=== PATIENT | female | born 1960 | race Caucasian/White ===

== ENCOUNTER 2020-11-30 06:49 | Emergency (ER) | payer OTHER, SELFPAY ==
--- NOTE | 2020-11-30 06:57 | DI.RAD.S_ITS ---
PROCEDURE: XR KNEE RT 3V INDICATIONS: trauma TECHNIQUE: 3 views of the knee were acquired. COMPARISON: None. FINDINGS: Bones: Transverse fracture through the mid patella. No significant distraction. No dislocations. No suspicious bony lesions. Soft tissues: Large joint effusion. Prepatellar soft tissue swelling. No suspicious soft tissue calcifications. IMPRESSION: Transverse fracture through the mid patella. This report is concordant with the overnight preliminary interpretation. Dictated by: Jose Manuel Wooten M.D. on 11/30/2020 at 8:07 Approved by: Jose Manuel Wooten M.D. on 11/30/2020 at 8:10
[2020-11-30 07:08] VITALS: BP 138/80; PULSE 74; RESP 17; TEMP 36.8; O2SAT 99; BMI 22.6
--- NOTE | 2020-11-30 07:28 | ED.LOWEXIN ---
HPI - Extremity Injury (Lower) General Chief Complaint: Extremity Injury, Lower Stated Complaint: Right knee injury -fell at home Time Seen by Provider: 11/30/20 06:55 Source: patient Mode of arrival: Wheelchair Limitations: no limitations History of Present Illness HPI Narrative: Patient is a 60-year-old female who while she was getting ready this morning tripped and fell landing on her right knee in a bent position. Had immediate discomfort and swelling. She was able to walk however was very uncomfortable for her. She placed ice over the area. She has had no prior injuries. Related Data Allergies Allergy/AdvReac Type Severity Reaction Status Date / Time No Known Drug Allergies Allergy Verified 11/30/20 07:08 Review of Systems Constitutional Constitutional: Denies fever(s) and Denies weakness Cardiovascular Cardiovascular: Denies chest pain and Denies dyspnea Respiratory Respiratory: Denies dyspnea Gastrointestinal Gastrointestinal: Denies abdominal pain Genitourinary Genitourinary: Denies dysuria Genitourinary: Denies dysuria Musculoskeletal Comments: Right knee pain and swelling Integumentary/Breasts Skin/Breast: Denies rash Neurologic Neurologic: Denies weakness Hematologic/Lymphatic On Anticoagulants: No Allergic/Immunologic Allergic/Immunologic: Denies urticaria Patient History Medical History Healthy adult Social History Smoking Status: Never smoker Smoking Status: Never smoker Substance Use Type: does not use Exam Initial Vital Signs Initial Vital Signs: Vital Signs Temperature 98.3 F 11/30/20 07:08 Pulse Rate 74 11/30/20 07:08 Respiratory Rate 17 11/30/20 07:08 Blood Pressure 138/80 11/30/20 07:08 Pulse Oximetry 99 11/30/20 07:08 Const General: cooperative and comfortable Limitations: mental status not altered HENMT Head: normal to inspection and normocephalic Resp Effort & Inspection: normal respiratory effort Skin Lesions: no lesions Rashes: no rashes Extrem Other: Patient has no right hip the right thigh tenderness. Her right calf is unremarkable. Right ankle and right foot are unremarkable. There are no other orthopedic injuries except for the right knee. Patient's right knee is swollen. She is able to do a straight leg raise. She is tender over the patella. No tenderness along the mediolateral joint lines. No tenderness along the hamstrings. Does have tenderness along the patella tendon. The quadriceps tendon has no tenderness in feels intact. Psych Appearance: grossly normal and well kempt Procedures Orthopedic Splinting/Casting Injury #1: Side: right Lower Extremity Injury Location: knee Lower Extremity Immobilizer: knee immobilizer Other Orthopedic Equipment: crutches Post splinting neuro exam: intact Post splinting vascular exam: intact Placed by: Nursing Course Orders Ordered: ED Orders 11/30/20 06:57 XR knee RT 3V Stat Vital Signs Vital signs: Vital Signs - 8 hr 11/30/20 07:08 Temperature 98.3 F Pulse Rate 74 Respiratory Rate 17 Blood Pressure 138/80 Pulse Oximetry 99 MDM - Extremity Injury (Lower) Imaging Data Extremity x-ray #1: Attestation: I personally reviewed and interpreted this imaging study as follows: My Impression: Patella fracture MDM Narrative Medical decision making narrative: Patient is neurovascularly intact. Does appear that this was a mechanical fall. Only injuries reported from the patient and found in the exam is the right knee. She does have a right knee effusion. There is a patellar fracture noted on the x-rays. She is able to do a straight leg raise. She has no tenderness over the quadriceps tendon and it does feel to be intact. Patient does have at least a partially intact patella tendon, however her potentially may be a partial tear but this exam could be skewed by the swelling that she is having. Will place her in a knee immobilizer. She was given crutches. She was given information for orthopedic follow-up. She denied the need for pain medicine stronger than Tylenol/ibuprofen. She is given return precautions. She expressed understanding and agreement. Discharge Plan Departure Patient Disposition: Home Clinical Impression: Fractured patella Qualifiers: Encounter type: initial encounter Fracture type: closed Fracture morphology: unspecified fracture morphology Fracture alignment: nondisplaced Laterality: right Qualified Code(s): S82.001A - Unspecified fracture of right patella, initial encounter for closed fracture Instructions: How to Use Crutches, DI for Patella Fracture, How to Use a Knee Immobilizer Activity Restrictions/Additional Instructions: The crutches are for your comfort. The knee immobilizer should be worn when you are up and standing however can be removed to take a shower or when you are sitting on the couch to ice your knee like we discussed. Recommend you contact the [facility] at [phone]. Call them today when their office opens to schedule an appointment for next week. Return to the emergency department for any new or worsening symptoms Referrals: Carlos Bradley MD [Physician] -
[2020-11-30 08:35] VITALS: BP 155/72; PULSE 64; RESP 16; O2SAT 98
== END 2020-11-30 08:35 | disposition home or self-care (01) ==
PROVIDERS: Emergency Provider Emergency Medicine
DX: S82.001A Unspecified fracture of right patella, initial encounter for closed fracture (principal); W19.XXXA Unspecified fall, initial encounter
CPT/HCPCS: 73562; 99283

== ENCOUNTER 2021-11-26 12:37 | Emergency (ER) | payer OTHER, SELFPAY ==
[2021-11-26] VITALS (14 sets, daily range): BP systolic 158–201; BP diastolic 83–97; PULSE 52–80; RESP 16–31; TEMP 36.6; O2SAT 98–99; BMI 23.5
--- NOTE | 2021-11-26 13:02 | DI.RAD.S_ITS ---
PROCEDURE: XR CHEST 1V INDICATIONS: chest pain TECHNIQUE: One view of the chest was acquired. COMPARISON: None. FINDINGS: Surgical changes and devices: None. Lungs and pleura: Lungs are clear. No pleural effusions or pneumothorax. Mediastinum: Mediastinal contours appear normal. Heart size is normal. Bones and chest wall: No suspicious bony lesions. Overlying soft tissues appear unremarkable. IMPRESSION: No acute cardiopulmonary findings Approved by: Shant Jara M.D. on 11/26/2021 at 12:34
[2021-11-26 13:34] LABS: Add Manual Diff / Slide Review NO; Basophils Absolute Auto 0 /uL (0-100); Basophils Percent Auto 0.3 % (0-2); Eosinophils Absolute Auto 0 /uL (0-450); Eosinophils Percent Auto 0.2 % (2-4); Hematocrit 36.2 % (36-46); Hemoglobin 12.6 g/dL (12.0-16.0); Lymphocytes Absolute Auto 1400 /uL (1100-4500); Lymphocytes Percent Auto 25.2 % (25-40); Mean Corpuscular HGB Conc 34.8 % (30-36); Monocytes Absolute Auto 300 /uL (0-900); Monocytes Percent Auto 5.7 % (3-14); Neutrophils Absolute Auto 3800 /uL (1500-7000); Neutrophils Percent Auto 68.6 % (50-75); Platelet Count 225 X10^3/uL (150-400); Red Blood Cell Count 4.06 X10^6/uL (4.0-5.2); Red Cell Distribution Width 12.9 % (11.6-14.8); White Blood Cell Count 5.5 X10^3/uL (4.5-11.0)
[2021-11-26 14:02] LABS: Alanine Aminotransferase 50 IU/L (<35); Albumin 4.6 g/dL (3.5-5.0); Albumin Globulin Ratio 1.6 (1.0-2.8); Alkaline Phosphatase 60 U/L (38-126); Aspartate Aminotransferase 48 IU/L (14-36); BUN Creatinine Ratio 13.2 (6-22); Bilirubin Total 0.7 mg/dL (0.2-1.3); Blood Urea Nitrogen 10 mg/dL (7-17); Calcium 9.6 mg/dL (8.4-10.2); Carbon Dioxide 29 mmol/L (22-32); Chloride 103 mmol/L (98-107); Creatine Kinase 220 U/L (30-135); Estimated Glomerular Filt Rate > 60.0 mL/min (>60); Globulin 2.9 g/dL (1.7-4.1); Glucose 111 mg/dL (80-110); HEMOLYSIS < 15 (0-50); Lipase 96 U/L (23-300); Magnesium 2.1 mg/dL (1.6-2.3); Sodium 141 mmol/L (137-145); Total Protein 7.5 g/dL (6.3-8.2)
[2021-11-26 14:12] LABS: Troponin I < 0.012 ng/mL (0.01-0.034)
[2021-11-26 14:18] LABS: CKMB % Relative Index 0.7 % (1.5-5.0); Creatine Kinase MB 1.59 ng/mL (<2.37)
--- NOTE | 2021-11-26 16:55 | ED_ITS ---
HPI - General Adult General Chief complaint: Hypertension Stated complaint: hypertensive Time Seen by Provider: 11/26/21 16:28 Source: patient Mode of arrival: Ambulatory History of Present Illness HPI narrative: Patient is a 61-year-old female who does have a history of hypertension presenting today with mild headache and elevated blood pressure, and mild chest pressure. She has noted that it has been elevated for about 1 week but was significantly elevated days. She denies any blurry vision numbness tingling or weakness. No palpitations or shortness of breath. She has had a lot of stress in her life vomiting people were ill her twin brother 2 years ago with thrombocytopenia an intracranial hemorrhage though she is worried about at as well. But she does not have any focal deficits Related Data Allergies Allergy/AdvReac Type Severity Reaction Status Date / Time No Known Drug Allergies Allergy Verified 11/26/21 13:02 Review of Systems Review of Systems Narrative: GENERAL: Denies chills, fatigue, malaise, fever, sweats, travel HEENT: Denies sinus pain, ear pain, sore throat, difficulty swallowing, neck pain RESPIRATORY: Denies dyspnea, cough, wheezing, hemoptysis, sputum. CARDIOVASCULAR: See HPI GASTROINTESTINAL: Denies nausea, vomiting, abdominal pain, diarrhea, constipation, melena. : Denies dysuria, frequency, incontinence, hematuria, urinary retention, flank pain. MUSCULOSKELETAL: Denies weakness, joint pain, or bony pain SKIN: No rash, no erythema, no pruritus NEUROLOGIC: See HPI PSYCHIATRIC: No concerning psychosocial issues. 12 point review of systems is negative except for those stated above and HPI Patient History Medical History Healthy adult Social History Smoking Status: Never smoker Smoking Status: Never smoker alcohol intake frequency: other Substance Use Type: does not use Exam Initial Vital Signs Initial Vital Signs: Vital Signs Temperature 97.9 F 11/26/21 12:58 Pulse Rate 76 11/26/21 12:58 Respiratory Rate 18 11/26/21 12:58 Blood Pressure 201/95 H 11/26/21 12:58 Pulse Oximetry 99 11/26/21 12:58 GENERAL: Alert well-appearing 61 female and in no acute distress. HEENT: Head atraumatic,EOMI, pupils reactive, face symmetric, moist mucous me mbranes CARDIOVASCULAR: Regular rate and rhythm without murmurs, rubs or gallops. RESPIRATORY: Breath sounds equal bilaterally, no wheezes rales or rhonchi. ABDOMEN: Soft, nontender. Normoactive bowel sounds all 4 quadrants. No guarding or rebound. EXTREMITIES: Normal range of motion, no clubbing or edema. Neurovascularly intact NEUROLOGICAL: Alert and oriented x4.Normal gait and speech. Cranial nerves II through XII grossly intact. Good [id number], good [id number], strength equal bilaterally, no dysarthria or aphasia, sensation in tact to soft touch bilaterally, no visual changes, no facial droop SKIN: Warm, dry, no laceration, no petechiae, no rashes or lesions. Scores NIH Stroke Scale Level of Conciousness: Alert, keenly responsive Ask month/age: Answers both questions correctly. Open/close eyes, close hand: Performs both tasks correctly Best gaze horizontal: Normal Visual [place]: No visual loss Facial palsy: Normal symetrical movement Left arm drift: No drift for full 10 sec Right arm drift: No drift for full 10 sec Left leg drift: No drift for full 5 sec Right leg drift: No drift for full 5 sec Limb ataxia: Absent Sensory on face/arms/legs: Normal, no sensory loss Best language: No aphasia, normal Dysarthria: Normal Extinction or inattention: No abnormality Total NIH Stroke scale score: 0 Course Orders Ordered: ED Orders 11/26/21 13:02 XR chest 1V Stat 11/26/21 13:12 EKG-12 Lead Stat 11/26/21 13:19 Complete Blood Count AUTO DIFF Stat Comprehensive Metabolic Panel Stat Lipase Stat Magnesium Stat Troponin & CK Cardiac Panel Stat 11/26/21 17:06 CT head/brain wo con Stat 11/26/21 17:10 Trop I [Troponin I] Stat Vital Signs Vital signs: Vital Signs - 8 hr 11/26/21 12:58 11/26/21 13:03 11/26/21 16:11 Temperature 97.9 F Pulse Rate 76 73 Respiratory Rate 18 Blood Pressure 201/95 H 198/96 H 194/96 H Pulse Oximetry 99 98 11/26/21 16:24 11/26/21 16:30 11/26/21 16:53 Temperature Pulse Rate 64 Respiratory Rate Blood Pressure 181/92 H 183/95 H Pulse Oximetry 99 11/26/21 17:00 11/26/21 17:12 11/26/21 17:40 Temperature Pulse Rate 74 72 Respiratory Rate 20 28 H Blood Pressure 179/97 H 190/91 H Pulse Oximetry 99 99 11/26/21 17:41 11/26/21 18:00 11/26/21 18:01 Temperature Pulse Rate 67 52 L 53 L Respiratory Rate 29 H 16 16 Blood Pressure 180/83 H Pulse Oximetry 11/26/21 18:30 11/26/21 18:33 Temperature Pulse Rate 66 80 Respiratory Rate 16 31 H Blood Pressure 158/93 H Pulse Oximetry 98 Medical Decision Making Lab Data Result diagrams: 11/26/21 13:19 11/26/21 13:19 Labs: Lab Results 11/26/21 11/26/21 11/26/21 Range/Units 13:19 13:19 17:10 WBC 5.5 (4.5-11.0) X10^3/uL RBC 4.06 (4.0-5.2) X10^6/uL Hgb 12.6 (12.0-16.0) g/dL Hct 36.2 (36-46) % MCV 89.0 (80-100) fL MCH 31.0 (26-34) PG MCHC 34.8 (30-36) % RDW 12.9 (11.6-14.8) % Plt Count 225 (150-400) X10^3/uL Neut % (Auto) 68.6 (50-75) % Lymph % (Auto) 25.2 (25-40) % [place] % (Auto) 5.7 (3-14) % Eos % (Auto) 0.2 L (2-4) % Baso % (Auto) 0.3 (0-2) % Neut # (Auto) 3800 (0127-6740) /uL Lymph # (Auto) 1400 (0369-1082) /uL [place] # (Auto) 300 (0-900) /uL Eos # (Auto) 0 (0-450) /uL Baso # (Auto) 0 (0-100) /uL Sodium 141 (137-145) mmol/L Potassium 3.0 L (3.4-5.1) mmol/L Chloride 103 (98-107) mmol/L Carbon Dioxide 29 (22-32) mmol/L BUN 10 (7-17) mg/dL Creatinine 0.76 (0.52-1.04) mg/dL Estimated GFR > 60.0 (>60) mL/min BUN/Creatinine Ratio 13.2 (6-22) Glucose 111 H (80-110) mg/dL Calcium 9.6 (8.4-10.2) mg/dL Magnesium 2.1 (1.6-2.3) mg/dL Total Bilirubin 0.7 (0.2-1.3) mg/dL AST 48 H (14-36) IU/L ALT 50 H (<35) IU/L Alkaline Phosphatase 60 (38-126) U/L Total Creatine Kinase 220 H (30-135) U/L CK-MB (CK-2) 1.59 (<2.37) ng/mL CK-MB (CK-2) Rel Index 0.7 L (1.5-5.0) % Troponin I < 0.012 < 0.012 (0.01-0.034) ng/mL Total Protein 7.5 (6.3-8.2) g/dL Albumin 4.6 (3.5-5.0) g/dL Globulin 2.9 (1.7-4.1) g/dL Albumin/Globulin Ratio 1.6 (1.0-2.8) Lipase 96 (23-300) U/L Imaging Data CT scan - head: Radiologist's Impression: PROCEDURE:? CT HEAD/BRAIN WO CON ? INDICATIONS:? headache with hypertension ? TECHNIQUE:? Noncontrast 4.5 mm thick angled axial sections acquired from the foramen magnum to the vertex, with coronal and sagittal reformats.? For radiation dose reduction, the following was used:? automated exposure control, adjustment of mA and/or kV according to patient size.? ? COMPARISON:? None. ? FINDINGS:? Image quality:? Excellent.? ? CSF spaces:? Basal cisterns are patent.? No extra-axial fluid collections.? Ventricles are normal in size and shape.? ? Brain:? No midline shift.? No intracranial masses or hemorrhage.? Mccabe-white matter interface is normal.? ? Skull and face:? Calvarium and visualized facial bones are intact, without suspicious lesions.? ? Sinuses:? Visualized sinuses and mastoids are clear.? ? IMPRESSION:? Unremarkable CT brain without intracranial hemorrhage or mass eff ect. ? ? ? Approved by: Shant Jara M.D. on 11/26/2021 at 16:56? ECG Data Interpretation: Normal sinus rhythm rate 66 DE interval 152 QRS [address] changes or T- wave inversions MDM Narrative Medical decision making narrative: Patient's blood pressure has improved significantly while in the emergency department without any intervention. She is under lot of stress also some anxiety as well. She does have a history of high blood pressure. I recommend she monitor at home. No sign of and and damage here. His CT is negative without sign of focal deficits. In fact her headache improved completely with water and food. Discharge Plan Departure Patient Disposition: Home Clinical Impression: Hypertension Instructions: DI for High Blood Pressure Activity Restrictions/Additional Instructions: *You have been diagnosed with hypertension *What to do: Please check her blood pressure once daily. Your blood pressure medication may need to be adjusted. *Continue to take medications as directed *Follow up with your primary care provider in 2-3 days or call [phone] *Return to ER if you should have worsening chest pressure, palpitations, headache, nausea, vomiting, weakness numbness tingling or any new, worsening or concerning symptoms
--- NOTE | 2021-11-26 17:06 | DI.CT.S_ITS ---
PROCEDURE: CT HEAD/BRAIN WO CON INDICATIONS: headache with hypertension TECHNIQUE: Noncontrast 4.5 mm thick angled axial sections acquired from the foramen magnum to the vertex, with coronal and sagittal reformats. For radiation dose reduction, the following was used: automated exposure control, adjustment of mA and/or kV according to patient size. COMPARISON: None. FINDINGS: Image quality: Excellent. CSF spaces: Basal cisterns are patent. No extra-axial fluid collections. Ventricles are normal in size and shape. Brain: No midline shift. No intracranial masses or hemorrhage. Mccabe-white matter interface is normal. Skull and face: Calvarium and visualized facial bones are intact, without suspicious lesions. Sinuses: Visualized sinuses and mastoids are clear. IMPRESSION: Unremarkable CT brain without intracranial hemorrhage or mass effect. Approved by: Shant Jara M.D. on 11/26/2021 at 16:56
[2021-11-26 17:54] LABS: Troponin I < 0.012 ng/mL (0.01-0.034)
== END 2021-11-26 18:37 | disposition home or self-care (01) ==
PROVIDERS: Emergency Provider Emergency Medicine
DX: I10 Essential (primary) hypertension (principal)
CPT/HCPCS: 36415; 70450; 71045; 80053; 82550; 82553; 83690; 83735; 84484; 85025; 93005; 99284